=== PATIENT | male | born 1985 | race Caucasian/White ===

== ENCOUNTER 2025-04-20 18:04 | Emergency (ER) | payer MEDICAID, SELFPAY ==
[2025-04-20 18:50] VITALS: BP 163/87; PULSE 88; RESP 18; TEMP 36.8; O2SAT 99; BMI 21.7
--- NOTE | 2025-04-20 19:08 | US_ITS ---
PROCEDURE INFORMATION: Exam: US Scrotum and US Duplex Artery and Vein, Scrotum, Complete Exam date and time: 04/20/2025 7:33 PM Age: 40 years old Clinical indication: Epididymitis and swelling, testicles or scrotum; Scrotum pain; Additional info: Left testicular swelling, pain. Possible torsion TECHNIQUE: Imaging protocol: Real-time ultrasound of the scrotum. Real-time duplex ultrasound scan of the arterial and venous flow of the scrotum with B-mode, color Doppler flow and spectral waveform analysis. Complete exam. Duplex exam was performed to evaluate for torsion and other vascular conditions. COMPARISON: No relevant prior studies available. FINDINGS: Right testicle: Measures 3.6 x 1.9 x 2.6 cm demonstrates homogeneous echotexture. Left testicle: Measures 3.8 x 3.2 x 3.0 cm demonstrates homogeneous echotexture. Epididymides: RIGHT epididymal cysts measuring up to 3 mm. Asymmetric heterogeneous enlargement and hyperemia of the LEFT epididymis. Scrotum/soft tissues: Small complex septated LEFT hydrocele with debris without evidence of varicocele on either side. Other findings: Doppler examination of the testicles with pulsed wave and color images was performed which demonstrate arterial/venous waveforms bilaterally with asymmetric hyperemia to the LEFT testicle. IMPRESSION: 1. Findings consistent with acute LEFT epididymoorchitis and a small complex septated hydrocele demonstrating debris. 2. RIGHT epididymal cyst/spermatocele. 3. No discrete testicular mass or abnormality. 4. Blood flow visualized to both testicles. COMMENTS: Intermittent/incomplete testicular torsion and/or spontaneous torsion-detorsion may result in FALSE NEGATIVE SONOGRAPHY RESULTS FOR TESTICULAR TORSION. Recommend correlation with pertinent clinical history and short interval follow-up if clinically indicated.
--- NOTE | 2025-04-20 19:09 | HMH.EDGENADL ---
Discharge Plan Disposition Patient Disposition: Home, Self-Care Prescriptions Prescriptions: New doxycycline hyclate 100 mg capsule 100 mg PO BID 10 Days Qty: 20 0RF No Action cyclobenzaprine [Flexeril] 10 mg Tablet 10 mg PO TID ibuprofen 800 mg Tablet 800 mg PO TID Referrals Follow up/Referrals: Provider,Referral, [Primary Care Provider, Medical] - See instructions Activity Restrictions/Add. Instructions Additional Instructions/Restrictions: You have swelling and inflammation of your left testicle and epididymis. This is oftentimes caused by infections. You have been treated with antibiotics here. You are being sent home with a course of antibiotics. Take this as prescribed. You can take Tylenol and ibuprofen to help with your symptoms. Wear supportive underwear, such as a jockstrap to help reduce pain. When resting, you can elevate the testicles with a pillow to help reduce pain. You can follow-up the results of the sexually-transmitted infection testing online or by calling the hospital. I do encourage you to follow with your primary care physicians if symptoms do not improve with antibiotics. If you develop any new or worsening symptoms, such as worsening pain, swelling, difficulty urinating, or if you become concerned for your health for any reason, return to the emergency department for evaluation Clinical Impressions Clinical Impression: Acute epididymo-orchitis Instructions Patient Instructions: DI for Epididymitis Print Language Print Language: Grenadian Discharge ED Provider: Mark Deras Adult HPI General Chief complaint: Urogenital-Male Stated complaint: L testicle swollen along with L side Time Seen by Provider: 04/20/25 19:03 Mode of Arrival: Ambulatory Source of Information: Patient Description of Symptoms (Recalled from ER Triage Doc. by RN): PT REPORTS LEFT TESTICLE PAIN, GROIN PAIN AND LEFT FLANK PAIN. PAIN STARTED 2 HOURS AFTER HAVING SEX ON 04/16. History of Present Illness HPI narrative: Galen Garvey is a 40-year-old male with a history of chronic back pain who takes ibuprofen and a muscle relaxer who presents to the emergency department for complaints of left testicular pain and swelling. Patient states that on 04/16/2025, patient was having sexual intercourse and 2 hours after finishing, he developed pain in his left testicle that radiates to his left abdomen and up his back. He states that the pain is intermittent and sitting makes the pain worse. He does note that the testicle itself seems swollen. He has no dysuria or hematuria. He has had kidney stones before. Related Data Home Medications ?Medication ?Instructions ?Recorded ?Confirmed cyclobenzaprine 10 mg tablet 10 mg PO TID 04/20/25 04/20/25 ibuprofen 800 mg tablet 800 mg PO TID 04/20/25 04/20/25 Previous Rx's ?Medication ?Instructions ?Recorded doxycycline hyclate 100 mg capsule 100 mg PO BID 10 days #20 caps 04/20/25 Allergies Allergy/AdvReac Type Severity Reaction Status Date / Time No Known Allergies Allergy Verified 04/20/25 19:09 [facility] Disclaimer: The information contained in this section may have been updated after the patient was seen, as this information can be updated by other users. Social History Smoking Status: Current every day smoker alcohol intake: never current occupational status: employed Travel in the last 8 weeks?: None ROS Obtained: Yes Systems reviewed as appropriate & no additional complaints except as documented Physical Exam General General appearance: alert and in no apparent distress Head Head exam: atraumatic Eye Eye exam: Present normal appearance ENT ENT exam: Present normal external ear exam Neck Neck exam: Present full ROM Chest Chest inspection: Present symmetric chest wall rise Respiratory Respiratory exam: Present normal lung sounds bilaterally; Absent respiratory distress Cardiovascular Cardiovascular exam: Present regular rate and normal rhythm Abdominal Exam Abdominal exam: Present soft; Absent tenderness or guarding exam: Present normal inspection (Left testicle appears swollen and firm. Loss of cremasteric reflex on the left side), deferred and testicular tenderness (left); Absent urethral discharge Extremities Exam Extremities exam: Present normal inspection Back Exam Back exam: Present normal inspection Neurological Exam Neurological exam: Present alert and oriented X3 Psychiatric Psychiatric exam: Present normal affect Skin Skin exam: Present warm and dry Medical Decision Making Medical Records Screening: Per USPSTF and CDC recommendations, given the prevalence of disease in our region, it is our hospital?s policy to screen for HIV and viral Hepatitis for all patients aged 18 and over and those with ongoing risk factors. Chris Inquiry Pt receiving controlled substance: No Vital Signs: 04/20/25 18:50 Temperature 98.2 F Temperature Source Oral Pulse Rate [Radial] 88 Respiratory Rate 18 Blood Pressure [Right Arm] 163/87 H Blood Pressure Mean [Right Arm] 112 Blood Pressure Source [Right Arm] Automatic Cuff Blood Pressure Position [Right Arm] Sitting 02 Sat by Pulse Oximetry 99 Oxygen Delivery Method Room Air Lab Data Lab Results 04/20/25 19:08: Urine Color Yellow, Urine Appearance Clear, Urine pH 7.0, Ur Specific [place] <= 1.005, Urine Protein Negative, Urine Glucose (UA) Negative, Urine Ketones Negative, Urine Blood Negative, Urine Nitrate Negative, Urine Bilirubin Negative, Urine Urobilinogen 0.2, Ur Leukocyte Esterase Negative, Urine RBC None, Urine WBC Occasional, Ur Squamous Epith Cells None, Urine Bacteria None Orders (Tests/Meds): ED MEDICATIONS Discontinued Medications Generic Name Dose Route Start Last Admin Trade Name Freq PRN Reason Stop Dose Admin Ceftriaxone Sodium 500 mg 04/20/25 20:41 04/20/25 20:53 Ceftriaxone 500mg Vial IM 04/20/25 20:42 500 mg ONCE ONE Administration Doxycycline Hyclate 100 mg 04/20/25 20:45 04/20/25 20:52 Doxycycline Hycl 100 Mg Tablet PO 04/20/25 20:46 100 mg ONCE ONE Administration ORDERS Category Date Time Status UA [Urinalysis and Microscopic] Stat Lab 04/20/25 19:08 Completed Urine Chlam/Gono/Trich ([facility]) Stat Lab 04/20/25 19:08 Received Testicular US [US Testicular] Stat Ultrasound 04/20/25 19:08 Completed Medical Decision Narrative: Galen Garvey is a 40-year-old male with a history of chronic back pain who takes ibuprofen and a muscle relaxer who presents to the emergency department for complaints of left testicular pain and swelling. Patient states that on 04/16/2025, patient was having sexual intercourse and 2 hours after finishing, he developed pain in his left testicle that radiates to his left abdomen and up his back. He states that the pain is intermittent and sitting makes the pain worse. He does note that the testicle itself seems swollen. He has no dysuria or hematuria. He has had kidney stones before. On arrival, patient is hypertensive with blood pressure 163/87, heart rate within normal limits, afebrile, breathing comfortably on room air with oxygen saturation 99% SpO2. Physical exam, stated above, revealed overall well-appearing male in no distress. Genitourinary exam showed a swollen and firm left testicle, more so in the epididymal region. Cremasteric reflexes intact. Normal testicular lie. He has some mild left-sided lower abdominal tenderness but no hernias or guarding. Differential diagnosis includes, but is not limited to: Testicular torsion, epididymitis, orchitis, varicocele, hydrocele, STI, urinary tract infection, among others. The most morbid conditions were considered and workup was based on these. Workup in the emergency department included: Scrotal ultrasound, urinalysis, urine chlamydia, gonorrhea, trichomonas. Lab work was considered, however this felt that this is not indicated at this time. Scrotal ultrasound was interpreted by me personally. Patient's left testicle and epididymal region are hyperemic consistent with epididymal orchitis. Blood flow is present to bilateral testicles. Per radiology report: Asymmetric heterogenous enlargement of the and hyperemia of the left epididymis. Findings consistent with acute left epididymal orchitis and small complex septated hydrocele demonstrating debris. Right epididymal cyst/spermatocele. No discrete testicular mass or abnormality. No blood flow visualized to both testicles . Urinalysis is negative for leukocyte esterase, nitrate, and low concern for urinary tract infection. STI testing is pending. Given this, we will treat patient with a dose of IM Rocephin 500 mg here. Patient also being given at 100 mg doxycycline here. Will discharge with prescription for 10 days of doxycycline twice daily. Also encouraged him to wear jockstrap/supportive underwear for pain support as well as Tylenol and ibuprofen. Encouraged him to follow-up with his primary care physician. Return precautions were given. All questions were answered. He demonstrated understanding and was in agreement this plan. Critical Care Critical Care Time Critical Care Time: No
--- NOTE | 2025-04-20 19:09 | PC.NURSE ---
US NOTIFIED OF ORDER
--- OUTSIDE RECORDS SUMMARY | 2025-04-20 19:12 | XMS_ITS | Encounter Summary ---
Author Organization [facility] Address [address] [id number] Care Team Providers Care Food Safety Officer Name Role Phone Unavailable Primary Care Provider Unavailabl e Reason for Referral * Consultation (Routine) - Authorized Specialty Diagnoses / Procedures Referred By Contac t Referred To Contact Neurology Diagnoses Paresthesia of lower extremity Aj Palomo MD [address] [place] [id number] Phone: tel: fax: Referral ID Status Reason Start Date Expiration Date Visits Requested Visits Authorized [id number] Authorized Specialty Services Required 02/14/2024 08/15/2025 1 1 Encounter Details Date Type Department Care Team (Late st Contact Info) Description 02/14/2024 Community Orders Community Practice [address] [place] [address] Aj Palomo MD [address] [place] [id number] Paresthesia of lower extremity (Primary Dx) Social History Tobacco Use Types Packs/Day Years Used Date Smoking Tobacco: Never Assessed Sex and Gender Information Value Date Recorded Sex Assigned at Not on file Legal Sex Male 8:45 PM EDT Gender Identity Not on file Sexual Orientation Not on file documented as of this encounter Plan of Treatment Scheduled Referrals Name Type Priority Associated Diagnoses Order Schedule Ambulatory referral to Neurology Outpatient Referral Routine Paresthesia of lower extremity Expected: 02/14/2024 (Approximate), Expires: 08/15/2025 documented as of this encounter Visit Diagnoses Diagnosis Paresthesia of lower extremity- Primary Disturbance of skin sensation documented in this encounter
--- OUTSIDE RECORDS SUMMARY | 2025-04-20 19:12 | XMS_ITS | Clinical Summary ---
Author Organization [facility] Address [address] [place] [address] Care Team Providers Care Pipefitter Name Role Phone Provider, No Known Primary Care Provider [phone] Allergies No known active allergies Medications cyclobenzaprine (FLEXERIL) 10 MG tablet as needed; Take 1 tablet by mouth 3 Times a Day as needed 12/23/2024 Active ibuprofen (ADVIL,MOTRIN) 800 MG tablet Take 1 tablet by mouth 3 times a day. 01/20/2025 Active Encounters Date Type Department Care Team Description 01/23/2025 4:28 PM EDT - 01/23/2025 4:49 PM EDT Hospital Encounter [facility] - [address] [place] [address] Farooq Head III, DO Acute non-recurrent pansinusitis (Primary Dx); Acute bronchospasm Discharge Disposition: Home or Self Care 01/23/2025 Travel from Last 3 Months Social History Tobacco Use Types Packs/Day Years Used Date Smoking Tobacco: Never Assessed Sex and Gender Information Value Date Recorded Sex Assigned at Not on file Legal Sex Male 12:36 PM EDT Gender Identity Not on file Sexual Orientation Not on file Last Filed Vital Signs Vital Sign Reading Time Taken Comments Blood Pressure 138/78 01/23/2025 4:32 PM EDT Pulse 78 01/23/2025 4:32 PM EDT Temperature 36.7 C (98 F) 01/23/2025 4:32 PM EDT Respiratory Rate 20 01/23/2025 4:32 PM EDT Oxygen Saturation 98% 01/23/2025 4:32 PM EDT Inhaled Oxygen Concentration - - Weight 83.9 kg (185 lb) 01/23/2025 4:32 PM EDT Height 182.9 cm (6') 01/23/2025 4:32 PM EDT Body Mass Index 25.09 01/23/2025 4:32 PM EDT Plan of Treatment Health Maintenance Due Date Last Done Comments ANNUAL PHYSICAL 1985 HEPATITIS C SCREENING 1985 TDAP/TD VACCINES (2 - Tdap) 05/04/2012 05/04/2002 COVID-19 Vaccine ( - 2023-2 5 season) 2024 INFLUENZA VACCINE 06/09/2025 Pneumococcal Vaccine 0-49 Aged Out No longer eligible based on patient's age to complete this topic Procedures Procedure Name Priority Date/Time Associated Diagnosis Comments POCT RAPID STREP A STAT 01/23/2025 4: 43 PM EDT Acute non-recurrent pansinusitis from Last 3 Months Results * POC Rapid Strep A (01/23/2025 4:43 PM EDT) [facility] Signature Rapid Strep A Screen Negative [facility] Internal Control Passed [facility] Lot Number [id number] [facility] Expiration Date 11/27/26 [facility] Swab 01/23/2025 4:43 PM EDT us Farooq Head III, DO POINT OF CARE TEST ORDERABL ES Final Result [facility]
[address] [place] [address], from Last 3 Months Insurance [employer] MEDICA[place] Care Teams Pipefitter Relationship Specialty Start Date End Date Provider, [place] [address] PCP - General 01/23/25
--- OUTSIDE RECORDS SUMMARY | 2025-04-20 19:12 | XMS_ITS | Clinical Summary ---
Author Organization [facility] Address [address] [place] [address] Care Team Providers Care Turner In Name Role Phone Unavailable Primary Care Provider Unavailabl e Social History Tobacco Use Types Packs/Day Years Used Date Smoking Tobacco: Never Assessed Sex and Gender Information Value Date Recorded Sex Assigned at Not on file Legal Sex Male 8:45 PM EDT Gender Identity Not on file Sexual Orientation Not on file Plan of Treatment Health Maintenance Due Date Last Done Comments [facility]-Depression Screening 1986 [facility]-Infant/Child/Adol SDOH Screenings 1986 [facility]-Varicella Vaccines (1 of 2 - 13+ 2-dose series) 1999 [facility]-DTaP,Tdap,and Td Vaccines (2 - Tdap) 05/05/2002 05/04/2002 [facility]- SDOH Screenings 2004 [facility]-Adult SDOH Screenings 2004 HPV Vaccines (1 - 3-dose SCDM series) 2013 [id number]-75 Vaccine (1 - 2023- season) 2024 [facility]-Influenza Vaccine (#1) 2025 [facility]-Zoster Vaccines (1 of 2) 2036 [facility]-Hepatitis B Vaccines Completed 001, 01/02/1999, 11/28/1998 [facility]-HIB Vaccines Aged Out No longer e ligible based on patient's age to complete this topic [facility]-Hepatitis A Vaccines Aged Out No longer eligible based on patient's age to complete this topic [facility]-IPV Vaccines Aged Out No longer e ligible based on patient's age to complete this topic [facility]-Pneumococcal Vaccine: Pediatrics (0 to 5 Years) and At-Risk Patients (6 to 49 Years) Aged Out No longer eligible b ased on patient's age to complete this topic [facility]-Rotavirus Vaccines Aged Out No lo nger eligible based on patient's age to complete this topic Insurance
[2025-04-20 20:18] LABS: Microscopic, Urine URINE MICROSCOPIC (MICROSCOPIC)
[2025-04-20 20:36] LABS: Bilirubin,Urine Negative (Negative); Color,Urine YELLOW (Yellow); Glucose,Urine (UA) Negative (Negative); Ketones,Urine Negative (Negative); Leukocyte Esterase,Urine Negative (Negative); PH,Urine 7.0 (5.0-8.5); Protein,Urine Negative (Negative); Specific Gravity, Urine <= 1.005 (1.005-1.030); Urobilinogen,Urine 0.2 EU/dl (0.2)
[2025-04-20 20:50] LABS: WBC,Urine Occasional #/hpf (0-3)
[2025-04-20] MEDS: DOXYCYCLINE HYCL 100 MG TABLET PO (20:52)
[2025-04-20 21:16] VITALS: BP 135/70; PULSE 70; RESP 18; TEMP 37; O2SAT 99
== END 2025-04-20 21:00 | disposition home or self-care (01) ==
PROVIDERS: Emergency Provider Student in an Organized Health Care Education/Training Program
DX: N45.3 Epididymo-orchitis (principal); N50.812 Left testicular pain
CPT/HCPCS: 76870; 81001; 87491; 87591; 87661; 96372; 99284; J0696